=== PATIENT | female | born 1995 | race Caucasian/White ===

== ENCOUNTER 2019-09-12 01:12 | Inpatient (IN) ==
[2019-09-12 04:09] LABS: Amphetamine Screen,Urine Positive ng/mL (Cutoff=1000); Barbiturate Screen,Urine Negative ng/mL (Cutoff=200); Benzodiazepines Screen,Urine Negative ng/mL (Cutoff=200); Cannabinoid Screen,Urine Negative ng/mL (Cutoff = 50); Cocaine Screen,Urine Negative ng/mL (Cutoff= 300); Opiate Screen,Urine Negative ng/mL (Cutoff=300); Phencyclidine Screen,Urine Negative ng/mL (Cutoff=25)
[2019-09-12] MEDS ORDERED: Naloxone 0.4 MG/ML INJ IVP PRN (04:12)
[2019-09-12] MEDS ORDERED: Vancomycin (wt based) 1,000 MG VIAL IVPB SCH (05:00)
[2019-09-12] MEDS ORDERED: *HR* Heparin 5,000 UNIT/ML VIAL IVP ONE (05:13)
[2019-09-12] MEDS ORDERED: *HR* Heparin 5,000 UNIT/ML VIAL IVP PRN ×2 (05:13)
[2019-09-12] MEDS ORDERED: Heparin 25,000 UNIT/250 ML D5W 25,000 UNIT/250 ML IV.SOLN IVC SCH (05:15)
[2019-09-12] MEDS ORDERED: *HR* Heparin 5,000 UNIT/ML VIAL SQ SCH (06:00)
[2019-09-12 06:54] LABS: VBG HCO3 27 mEq/L (21-27); VBG PCO2 48 mmHg (41-51); VBG PH 7.35 pH Units (7.32-7.42); VBG PO2 82 mmHg (25-50)
[2019-09-12 06:54] LABS: Basophils % 0.3 %; Eosinophils # 0.1 K/mcL (0.0-0.6); Eosinophils % 0.8 %; Hematocrit 32.3 % (35.3-44.9); Hemoglobin 11.1 g/dL (11.5-15.4); Immature Granulocytes % 0.4 % (0-4); Lymphocytes # 1.6 K/mcL (0.6-4.6); Lymphocytes % 15.4 %; Mean Corpuscular HGB Conc 34.4 g/dL (31.6-35.5); Mean Corpuscular Hemoglobin 29.4 pg (28.0-33.3); Mean Corpuscular Volume 85.4 fL (83.0-100.0); Mean Platelet Volume 9.4 fL (9.4-12.4); Monocytes # 0.4 K/mcL (0.0-1.3); Monocytes % 3.8 %; Neutrophils # 8.5 K/mcL (1.6-8.9); Platelet Count 209 K/mcL (140-400); Red Blood Count 3.78 M/mcL (3.82-4.97); Red Cell Distribution Width 13.9 % (11.5-14.5); Segmented Neutrophils % 79.3 %; White Blood Count 10.7 K/mcL (4.3-11.1)
[2019-09-12 06:55] LABS: Immature Reticulocyte % 12.3 % (11.0-38.0); Retculocyte # 0.04 M/mcL (0.05-0.10); Reticulocyte % 1.1 % (1.6-2.8)
[2019-09-12 06:56] LABS: INR 1.1
[2019-09-12 07:15] LABS: Alanine Aminotransferase 8 Units/L (7-52); Albumin 2.9 g/dL (3.5-5.7); Alkaline Phosphatase 55 Units/L (34-104); Aspartate Amino Transferase 9 Units/L (13-39); BUN/Creatinine Ratio 9 (6-26); Bilirubin,Total 0.8 mg/dL (0.3-1.0); Blood Urea Nitrogen 9 mg/dL (6-20); Calcium 8.2 mg/dL (8.6-10.3); Carbon Dioxide 26 mEq/L (23-29); Chloride 103 mEq/L (98-107); Glucose 130 mg/dL (70-105); Magnesium 1.7 mg/dL (1.6-2.6); Osmolality,Calculated 282 (280-300); Phosphorous 3.5 mg/dL (2.7-4.5); Potassium 3.1 mEq/L (3.5-5.1); Sodium 136 mEq/L (136-145); Total Protein 5.9 g/dL (6.4-8.9); eGFR For African Americans > 60 (> 60); eGFR For Non-African Americans > 60 (> 60)
[2019-09-12 07:17] LABS: % Iron Saturation 8 % (15-50); Iron 27 mcg/dL (50-170); Lactate Dehydrogenase 94 Units/L (140-271); Transferrin 257 mg/dL (203-362)
[2019-09-12 07:35] LABS: Ferritin 43 ng/mL (10-120)
[2019-09-12] MEDS ORDERED: Ringers Solution, Lactated 1,000 ML IVC ONE (07:35)
[2019-09-12 07:41] LABS: Folate 15.1 ng/mL (3.0-16.0)
[2019-09-12] MEDS ORDERED: Ringers Solution, Lactated 1,000 ML ONE (07:42)
[2019-09-12] MEDS ORDERED: Piperacillin/Tazobactam 3.375 GM in 0.9 % Sodium Chloride Mini Bag 100 ML IVPB SCH (08:00)
[2019-09-12] MEDS ORDERED: cefTRIAXone 2,000 MG in Water for inj. (sterile) 20 ML IVP SCH (10:00)
[2019-09-12] MEDS ORDERED: Lidocaine -MPF 1% 2 ML AMPUL INFILT ONE (10:19)
[2019-09-12 10:35] LABS: Hepatitis B Surface Antigen Nonreactive (Nonreactive)
[2019-09-12 10:37] LABS: Bilirubin,Urine Negative (Negative); Blood,Urine Negative (Negative); Clarity,Urine Clear (Clear); Color,Urine Yellow (Yellow); Glucose,Urine (UA) Normal (Normal); Ketones,Urine Negative (Negative); Leukocyte Esterase,Urine Negative (Negative); Nitrite,Urine Negative (Negative); Protein,Urine Trace mg/dL (Neg-Trace); Specific Gravity,Urine 1.024 (1.010-1.025); Urobilinogen,Urine Normal (Normal)
[2019-09-12 11:04] LABS: Hepatitis B Core IgM Nonreactive (Nonreactive)
[2019-09-12 11:05] LABS: Hepatitis A Antibody IgM Nonreactive (Nonreactive)
[2019-09-12 11:37] LABS: Red Blood Cell,CSF < 0.002 M/mcL
[2019-09-12 11:38] LABS: Appearance,CSF Clear (Clear)
[2019-09-12 11:53] LABS: Glucose,CSF 69 mg/dL (40-70); Total Protein,CSF 42 mg/dL (15-45)
[2019-09-12 12:11] LABS: Chlamydia Trachomatis DNA Ur NOT DETECTED (Not Detect)
[2019-09-12] MEDS: 0.9 % Sodium Chloride 1,000 ML IVC SCH (13:33)
[2019-09-12 14:55] LABS: Hepatitis C Virus Antibody Reactive (Nonreactive)
[2019-09-13] MEDS: 0.9 % Sodium Chloride 1,000 ML IVC SCH (04:47)
[2019-09-13 05:13] LABS: Basophils % 0.3 %; Eosinophils # 0.3 K/mcL (0.0-0.6); Eosinophils % 3.8 %; Hematocrit 31.6 % (35.3-44.9); Hemoglobin 10.6 g/dL (11.5-15.4); Immature Granulocytes % 0.3 % (0-4); Lymphocytes # 1.8 K/mcL (0.6-4.6); Lymphocytes % 23.6 %; Mean Corpuscular HGB Conc 33.5 g/dL (31.6-35.5); Mean Corpuscular Hemoglobin 29.1 pg (28.0-33.3); Mean Corpuscular Volume 86.8 fL (83.0-100.0); Mean Platelet Volume 9.5 fL (9.4-12.4); Monocytes # 0.4 K/mcL (0.0-1.3); Monocytes % 4.7 %; Neutrophils # 5.1 K/mcL (1.6-8.9); Platelet Count 235 K/mcL (140-400); Red Blood Count 3.64 M/mcL (3.82-4.97); Red Cell Distribution Width 14.1 % (11.5-14.5); Segmented Neutrophils % 67.3 %; White Blood Count 7.6 K/mcL (4.3-11.1)
[2019-09-13 05:36] LABS: BUN/Creatinine Ratio 11 (6-26); Blood Urea Nitrogen 8 mg/dL (6-20); Calcium 8.3 mg/dL (8.6-10.3); Carbon Dioxide 23 mEq/L (23-29); Chloride 110 mEq/L (98-107); Glucose 106 mg/dL (70-105); Osmolality,Calculated 287 (280-300); Sodium 139 mEq/L (136-145); eGFR For African Americans > 60 (> 60); eGFR For Non-African Americans > 60 (> 60)
[2019-09-13] MEDS: cloNIDine HCl 0.1 MG TABLET PO SCH ×3 (13:09→20:08)
[2019-09-13] MEDS: FLUoxetine HCl Oral Soln 20 MG/5 ML UDC PO SCH (15:36)
[2019-09-13] MEDS: Cefepime HCl 2,000 MG in 0.9 % Sodium Chloride Mini Bag 100 ML IVPB SCH (17:43)
[2019-09-14] MEDS: Cefepime HCl 2,000 MG in 0.9 % Sodium Chloride Mini Bag 100 ML IVPB SCH ×2 (06:01→17:41)
[2019-09-14] MEDS: Acetaminophen 325 MG TABLET PO PRN (06:39)
[2019-09-14] MEDS: FLUoxetine HCl Oral Soln 20 MG/5 ML UDC PO SCH (08:26)
[2019-09-14] MEDS: cloNIDine HCl 0.1 MG TABLET PO SCH ×3 (08:26→20:54)
[2019-09-14] MEDS ORDERED: Nicotine 21 MG PATCH.TD24 TD SCH (09:00)
[2019-09-14] MEDS ORDERED: FLUoxetine HCl Oral Soln 20 MG/5 ML UDC PO SCH (09:00)
[2019-09-14] MEDS: FLUoxetine 20 MG CAPSULE PO SCH (09:07)
[2019-09-14] MEDS: Nicotine 14 MG PATCH.TD24 TD SCH (09:20)
[2019-09-14 09:58] LABS: BUN/Creatinine Ratio 10 (6-26); Blood Urea Nitrogen 9 mg/dL (6-20); eGFR For African Americans > 60 (> 60); eGFR For Non-African Americans > 60 (> 60)
[2019-09-14 12:40] LABS: HIV-1 Ab Supplemental NEGATIVE (Negative); HIV-2 Ab Supplemental NEGATIVE (Negative)
[2019-09-14] MEDS ORDERED: clonazePAM 0.5 MG TABLET PO ONE (15:13)
[2019-09-14] MEDS: *HR* OxyCODONE/APAP 5/325 TABLET PO PRN (18:31)
[2019-09-14] MEDS: clonazePAM 0.5 MG TABLET PO SCH (20:52)
[2019-09-15] MEDS: *HR* OxyCODONE/APAP 5/325 TABLET PO PRN (04:09)
[2019-09-15] MEDS: Cefepime HCl 2,000 MG in 0.9 % Sodium Chloride Mini Bag 100 ML IVPB SCH (05:52)
[2019-09-15 06:17] LABS: Basophils % 0.5 %; Eosinophils # 0.2 K/mcL (0.0-0.6); Eosinophils % 3.6 %; Hematocrit 29.8 % (35.3-44.9); Hemoglobin 10.1 g/dL (11.5-15.4); Immature Granulocytes % 0.5 % (0-4); Lymphocytes # 1.7 K/mcL (0.6-4.6); Lymphocytes % 40.8 %; Mean Corpuscular HGB Conc 33.9 g/dL (31.6-35.5); Mean Corpuscular Hemoglobin 29.2 pg (28.0-33.3); Mean Corpuscular Volume 86.1 fL (83.0-100.0); Mean Platelet Volume 9.4 fL (9.4-12.4); Monocytes # 0.2 K/mcL (0.0-1.3); Monocytes % 4.6 %; Neutrophils # 2.1 K/mcL (1.6-8.9); Platelet Count 193 K/mcL (140-400); Red Blood Count 3.46 M/mcL (3.82-4.97); Red Cell Distribution Width 13.6 % (11.5-14.5); White Blood Count 4.1 K/mcL (4.3-11.1)
[2019-09-15 06:36] LABS: BUN/Creatinine Ratio 15 (6-26); Blood Urea Nitrogen 13 mg/dL (6-20); Calcium 8.3 mg/dL (8.6-10.3); Carbon Dioxide 23 mEq/L (23-29); Chloride 108 mEq/L (98-107); Glucose 154 mg/dL (70-105); Osmolality,Calculated 293 (280-300); Potassium 3.1 mEq/L (3.5-5.1); Sodium 140 mEq/L (136-145); eGFR For African Americans > 60 (> 60); eGFR For Non-African Americans > 60 (> 60)
[2019-09-15] MEDS: Acetaminophen 325 MG TABLET PO PRN ×2 (06:49→13:36)
[2019-09-15] MEDS ORDERED: Potassium Chloride Elixir 20 MEQ/15 ML UDC PO SCH ×2 (08:30→12:00)
[2019-09-15] MEDS: Nicotine 14 MG PATCH.TD24 TD SCH (09:16)
[2019-09-15] MEDS: clonazePAM 0.5 MG TABLET PO SCH (09:17)
[2019-09-15] MEDS: cloNIDine HCl 0.1 MG TABLET PO SCH (09:17)
[2019-09-15] MEDS: FLUoxetine 20 MG CAPSULE PO SCH (09:18)
[2019-09-15 11:59] VITALS: BP 110/75
[2019-09-15] MEDS ORDERED: Potassium Chloride Elixir 20 MEQ/15 ML UDC PO ONE (12:15)
[2019-09-15] MEDS ORDERED: Aminoglycoside Consult 1 EACH MC ONE (14:34)
[2019-09-15] MEDS ORDERED: Penicillin G Potassium 2,000,000 UNIT in 0.9 % Sodium Chloride 100 ML IVPB SCH (16:00)
== END 2019-09-15 14:35 | disposition left against medical advice (07) | DRG 720 ==
LOC: 2NNU → SUATTDRO 04:13
PROVIDERS: ADMIT Family Medicine; ATTEND Internal Medicine

== ENCOUNTER 2020-12-25 16:53 | Observation (INO) ==
[2020-12-25] MEDS ORDERED: *HR* HYDROcodone/Acet 5/325 mg TABLET PO PRN (18:05)
[2020-12-25] MEDS ORDERED: Ondansetron ODT 4 MG TAB.RAPDIS SL PRN (18:05)
[2020-12-25] MEDS ORDERED: Acetaminophen 325 MG TABLET PO PRN (18:05)
[2020-12-25] MEDS ORDERED: Naloxone 0.4 MG/ML INJ IVP PRN (18:05)
[2020-12-25] MEDS ORDERED: CeFAZolin 2 GM/120 ML BAG IVPB SCH (19:00)
[2020-12-25] MEDS: Nicotine 21 MG PATCH.TD24 TD SCH (22:19)
[2020-12-25 23:48] LABS: Hematocrit 36.8 % (35.3-44.9); Hemoglobin 12.8 g/dL (11.5-15.4); Mean Corpuscular HGB Conc 34.8 g/dL (31.6-35.5); Mean Corpuscular Hemoglobin 30.9 pg (28.0-33.3); Mean Corpuscular Volume 88.9 fL (83.0-100.0); Mean Platelet Volume 9.4 fL (9.4-12.4); Platelet Count 212 K/mcL (140-400); Red Blood Count 4.14 M/mcL (3.82-4.97); Red Cell Distribution Width 12.7 % (11.5-14.5); White Blood Count 6.1 K/mcL (4.3-11.1)
[2020-12-26 00:07] LABS: BUN/Creatinine Ratio 14 (6-26); Blood Urea Nitrogen 10 mg/dL (6-20); Calcium 9.3 mg/dL (8.6-10.3); Carbon Dioxide 28 mEq/L (23-29); Chloride 105 mEq/L (98-107); Glucose 91 mg/dL (70-105); Osmolality,Calculated 285 (280-300); Sodium 138 mEq/L (136-145); eGFR For African Americans > 60 (> 60); eGFR For Non-African Americans > 60 (> 60)
[2020-12-26 07:44] VITALS: BP 114/67
[2020-12-26] MEDS: CeFAZolin 2 GM/120 ML BAG IVPB SCH ×2 (08:53→11:24)
[2020-12-26] MEDS: Nicotine 21 MG PATCH.TD24 TD SCH (08:53)
== END 2020-12-26 16:51 | disposition home or self-care (01) ==
LOC: 3NENU → SUATTDRO 17:24
PROVIDERS: ADMIT Internal Medicine; ATTEND Student in an Organized Health Care Education/Training Program